=== PATIENT | female | born 1980 | race Caucasian/White ===

== ENCOUNTER 2016-06-20 07:21 | Inpatient (IN) | payer BC ==
[2016-06-20] VITALS (36 sets, daily range): BP systolic 97–150; BP diastolic 51–107
[~2016-06-20] VITALS: Ht 167.6 cm; Wt 112.0 kg
[~2016-06-20 07:21] MED LIST: COMPLERA TABLE1 EACH PO; KEFLEX500 MG PO; OXYCODONE HCL5 M1 PO; PERCOCET 5/31 TABLET PO; PNV PRENATAL P1 EACH PO; VITAMIN B-12; ZOFRAN8 MG PO
[2016-06-20 09:11] LABS: EOSINOPHIL (%) 0.3 % (0-5); HEMATOCRIT 37.1 % (36.0-46.0); IMMATURE GRANULOCYTE (%) 0.2 % (0.0-0.7); LYMPHOCYTE COUNT 1.2 K/uL (1.0-2.8); MCH 32.7 PG (29.0-34.0); MCV 93.5 FL (83-99); MEAN PLAT.VOLUME 12.3 uM^3 (9.5-12.4); MONOCYTE (%) 5.7 % (3-12); MONOCYTE COUNT 0.8 K/uL (0-0.8); NEUTROPHIL (%) 85.6 % (45-76); NEUTROPHIL COUNT 12.5 K/uL (1.8-6.4); PLATELET COUNT 185 K/uL (156-360); RBC DIS.WIDTH-CV 12.9 % (11.8-14.6); RBC DIS.WIDTH-SD 44.2 % (39-53); RED BLOOD COUNT 3.97 M/uL (3.80-5.20); WHITE BLOOD COUNT 14.6 K/uL (4.1-10.2)
[2016-06-20] MEDS ORDERED: MOTRIN800 MG PO (19:39)
[2016-06-21 08:03] VITALS: BP 106/70
[2016-06-21 14:54] VITALS: BP 100/66
[2016-06-21 14:56] VITALS: BP 100/66
[2016-06-21 22:15] VITALS: BP 120/80
[2016-06-22 07:30] VITALS: BP 119/79
[2016-06-22 15:06] VITALS: BP 125/80
== END 2016-06-22 21:55 | disposition home or self-care (01) | DRG 774 ==
LOC: LDRP-OP 07:21 → 2WEST 07:22
PROVIDERS: Midwife
DX: O70.0 First degree perineal laceration during delivery (principal); O98.72 Human immunodeficiency virus [HIV] disease complicating childbirth; Z21 Asymptomatic human immunodeficiency virus [HIV] infection status; O63.1 Prolonged second stage (of labor); O99.344 Other mental disorders complicating childbirth; F41.9 Anxiety disorder, unspecified; O99.214 Obesity complicating childbirth; E66.01 Morbid (severe) obesity due to excess calories; Z68.42 Body mass index [BMI] 45.0-49.9, adult; Z3A.38 38 weeks gestation of pregnancy; Z37.0 Single live birth; Z87.891 Personal history of nicotine dependence
CPT/HCPCS: 85025; C1755; J0595; J1050; J2405; J3010; J3485; J7120

== ENCOUNTER 2017-05-30 19:41 | Emergency (ER) | payer BC ==
[~2017-05-30] VITALS: Ht 167.6 cm; Wt 110.6 kg
[~2017-05-30 19:41] MED LIST changes: +MOTRIN800 MG PO
[2017-05-30] MEDS ORDERED: PERCOCET 5/31 TABLET PO (22:12)
[2017-05-30] MEDS ORDERED: KEFLEX500 MG PO (22:12)
[2017-05-30 22:33] VITALS: BP 119/95
== END 2017-05-30 22:34 | disposition home or self-care (01) ==
LOC: EME 19:41
DX: L05.01 Pilonidal cyst with abscess (principal); Z21 Asymptomatic human immunodeficiency virus [HIV] infection status
CPT/HCPCS: 99281; 99283

== ENCOUNTER 2017-06-01 17:00 | Emergency (ER) | payer BC ==
[~2017-06-01] VITALS: Ht 167.6 cm; Wt 111.3 kg
[2017-06-01 20:36] LABS: BASOPHIL (%) 0.3 % (0-1); EOSINOPHIL COUNT 0.1 K/uL (0-0.3); HEMATOCRIT 36.4 % (36.0-46.0); HEMOGLOBIN 12.4 G/DL (11.9-15.5); IMMATURE GRANULOCYTE (%) 0.5 % (0.0-0.7); LYMPHOCYTE (%) 18.9 % (15-42); LYMPHOCYTE COUNT 2.2 K/uL (1.0-2.8); MCH 31.6 PG (29.0-34.0); MCHC 34.1 G/DL (30.0-36.0); MCV 92.9 FL (83-99); MONOCYTE (%) 9.6 % (3-12); MONOCYTE COUNT 1.1 K/uL (0-0.8); NEUTROPHIL (%) 69.7 % (45-76); PLATELET COUNT 214 K/uL (156-360); RBC DIS.WIDTH-CV 11.8 % (11.8-14.6); RED BLOOD COUNT 3.92 M/uL (3.80-5.20); WHITE BLOOD COUNT 11.4 K/uL (4.1-10.2)
[2017-06-01 20:48] LABS: CHLORIDE 111 mEq/L (99-109); POTASSIUM 3.6 mEq/L (3.7-5.4); SODIUM 139 mEq/L (136-147)
[2017-06-01 20:50] LABS: GLUCOSE 102 mg/dL (70-99)
[2017-06-01 20:54] LABS: CREATININE 0.9 mg/dL (0.6-1.3); GFR ESTIMATE (CALCULATED) > 59 mL/min/
[2017-06-01 20:55] LABS: UREA NITROGEN (BUN) 10 mg/dL (9-23)
[2017-06-01] MEDS ORDERED: BACTRIM,SEPT1 TABLET PO (22:29)
[2017-06-01] MEDS ORDERED: PERCOCET 7.51 TABLET PO (22:29)
[2017-06-01 23:14] VITALS: BP 107/60
== END 2017-06-01 23:24 | disposition home or self-care (01) ==
LOC: EME 17:00
PROVIDERS: Physician Assistant
PROC: 0H98XZZ Drainage of Buttock Skin, External Approach (ICD-10-PCS; principal; 2017-06-01)
DX: L05.01 Pilonidal cyst with abscess (principal); Z21 Asymptomatic human immunodeficiency virus [HIV] infection status; Z87.442 Personal history of urinary calculi; Z88.8 Allergy status to other drugs, medicaments and biological substances
CPT/HCPCS: 80048; 83605; 85025; 87040; 87070; 87075; 87076; 87205; J3010; J3370; J7030

== ENCOUNTER 2017-06-03 16:51 | Emergency (ER) | payer BC ==
[~2017-06-03] VITALS: Ht 167.6 cm; Wt 112.8 kg
[~2017-06-03 16:51] MED LIST changes: +BACTRIM,SEPT1 TABLET PO; +PERCOCET 7.51 TABLET PO
[2017-06-03 18:08] VITALS: BP 128/88
== END 2017-06-03 18:13 | disposition home or self-care (01) ==
LOC: EME 16:51
PROC: 2W05X5Z Change Packing Material on Back (ICD-10-PCS; principal; 2017-06-03)
DX: L05.91 Pilonidal cyst without abscess (principal); Z48.00 Encounter for change or removal of nonsurgical wound dressing; Z88.8 Allergy status to other drugs, medicaments and biological substances
CPT/HCPCS: 99281; 99284

== ENCOUNTER 2017-06-05 17:23 | Emergency (ER) | payer BC ==
[~2017-06-05] VITALS: Ht 167.6 cm; Wt 111.1 kg
[2017-06-05 21:36] VITALS: BP 128/87
== END 2017-06-05 21:44 | disposition home or self-care (01) ==
LOC: EME 17:23
DX: L05.01 Pilonidal cyst with abscess (principal); Z48.00 Encounter for change or removal of nonsurgical wound dressing; Z21 Asymptomatic human immunodeficiency virus [HIV] infection status
CPT/HCPCS: 99281; 99285